=== PATIENT | male | born 1995 | race Caucasian/White ===

== ENCOUNTER 2016-08-07 22:04 | Emergency (ER) | payer MEDICAID ==
[2016-08-07 22:12] VITALS: RESP 16
--- NOTE | 2016-08-07 22:25 | CPEKG ---
Heart Rate: 82 RR Interval: 732 P-R Interval: 156 QRSD Interval: 102 QT Interval: 356 QTC Interval: 416 P [place]: 65 QRS [place]: 67 T Wave [place]: 53 EKG Severity - NORMAL ECG - EKG Impression: SINUS RHYTHM Electronically Signed By: Saran Novoa 08-Aug-2016 06:55:03
--- NOTE | 2016-08-07 22:30 | EDPHY ---
H & P Stated Complaint: pt says at home his heart rate was approx 160, says having stress HPI/ROS: HPI CHIEF COMPLAINT: Anxiety, palpitations, numbness and tingling in hands, now resolved HISTORY OF PRESENT ILLNESS: This patient otherwise healthy 20-year-old male he does have significant past medical history for anxiety but does not take any daily medications, he tells me he has been under a great amount of stress recently just graduated from [employer] yesterday he was at his graduation [place] in [place] with his parents and became very stressed he got in argument with his parents he left his own graduation [employer] and drove back to [place]. He lives alone. He states he was on the couch felt very anxious with numbness and tingling in his hands, felt his heart racing to a heart rate of 160. Came to the emergency room as he was feeling very anxious and he lives alone. Currently upon arrival he tells me he feels much better. He denies chest pain or shortness of breath he tells me tingling is resolved. Anxiety is improving. Past Medical History: Anxiety Past Surgical History: No surgical history Social History: Smokes tobacco, marijuana, occasional alcohol use, graduated [employer] yesterday Family History: Noncontributory ROS REVIEW OF SYSTEMS: A comprehensive 10 point review of systems is otherwise negative aside from elements mentioned in the history of present illness. Exam Constitutional appears well nontoxic, triage nursing summary reviewed, vital signs reviewed, awake/alert. Eyes normal conjunctivae and sclera, EOMI, PERRLA. HENT normal inspection, atraumatic, moist mucus membranes, no epistaxis, neck supple/ no meningismus, no raccoon eyes. Respiratory clear to auscultation bilaterally, normal breath sounds, no respiratory distress, no wheezing. Cardiovascular rate normal, regular rhythm, no murmur, no edema, distal pulses normal. Gastrointestinal soft, non-tender, no rebound, no guarding, normal bowel sounds, no distension, no pulsatile mass. Genitourinary no CVA tenderness. Musculoskeletal no midline vertebral tenderness, full range of motion, no calf swelling, no tenderness of extremities, no meningismus, good pulses, neurovascularly intact. Skin pink, warm, & dry, no rash, skin atraumatic. Neurologic awake, alert and oriented x 3, AAOx3, moves all 4 extremities equally, motor intact, sensory intact, CN II-XII intact, normal cerebellar, normal vision, normal speech. Psychiatric normal mood/affect. Heme/Lymph/Immune no lymphadenopathy. 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 Patient does tell me he feels much better since being here. His heart rate is noted to be 80s on the monitor. He tells me his anxiety greatly improved. Will obtain EKG. Monitor p.o. challenge. Re-evaluation: EKG interpretation by me on record in [employer] system. Impression time of EKG 2223, this is sinus rhythm rate of 82 normal morphology. Normal intervals. No signs of cardiac arrhythmia, no signs of WPW or [place]. Intervals are appropriate. No signs of ischemia. EKG interpreted by myself. EKG interpretation by me on record in [employer] system. Impression time of EKG 2323, this is sinus rhythm rate of 94, no acute ischemia changes. No signs of cardiac arrhythmia. Unremarkable EKG unchanged from previous EKG. 1235AM: Is notified to me that this patient became anxious and tachycardic in the 130s while resting here. Due to him having tachycardia for brief episode I did decide to establish an IV, do a blood draw check electrolytes. Currently this time I did re-evaluate he is resting comfortably no acute distress denies chest pain shortness of breath is not anxious at this time. Currently heart rate 82, pulse ox 90% blood pressure 118/89. 1240AM: Patient does tell me he slightly feels anxious at this time. However vital signs remained stable. 2 EKGs are unremarkable. Chest x-ray reviewed is unremarkable blood work is reassuring. Patient does feel comfortable going home. Do recommend follow up with his primary care doctor about anxiety. Return emergency room if there is worsening symptoms questions concerns he understands. ED x-ray chest one view: This is negative for acute cardiopulmonary disease. Image interpreted by myself. 0103AM: Take-home pack of Ativan given. Source: Patient - Medical/Surgical History Hx Asthma: No Hx Chronic Respiratory Disease: No Hx Diabetes: No Hx Cardiac Disease: No Hx Renal Disease: No Hx Cirrhosis: No Hx Alcoholism: No Hx HIV/AIDS: No Hx Splenectomy or Spleen Trauma: No Other PMH: anxiety - Social History Smoking Status: Current every day smoker Constitutional: Initial Vital Signs Temperature (C) 36.8 C 08/07/16 22:07 Heart Rate 98 08/07/16 22:07 Respiratory Rate 16 08/07/16 22:07 Blood Pressure 157/102 H 08/07/16 22:07 O2 Sat (%) 97 08/07/16 22:07 O2 Delivery Mode Room Air Allergies/Adverse Reactions: cough medicine Allergy (Uncoded 08/07/16 22:12) Home Medications: Medication Instructions Recorded No Medications [No Meds] 01/05/13 Medical Decision Making - Diagnostics Imaging Results: Imaging Impressions Chest X-Ray 08/07/16 23:05 Impression: 1. No acute pulmonary disease. 2. No pneumothorax. - Data Points Laboratory Results: Laboratory Results 08/07/16 23:25 08/07/16 23:25 08/07/16 08/07/16 08/07/16 23:25 23:25 23:25 WBC 8.34 10^3/uL 10^3/uL (3.80-9.50) RBC 5.13 10^6/uL 10^6/uL (4.40-6.38) Hgb 15.9 g/dL g/dL (13.7-17.5) Hct 45.3 % % (40.0-51.0) MCV 88.3 fL fL (81.5-99.8) MCH 31.0 pg pg (27.9-34.1) MCHC 35.1 g/dL g/dL (32.4-36.7) RDW 11.9 % % (11.5-15.2) Plt Count 297 10^3/uL 10^3/uL (150-400) MPV 10.3 fL fL (8.7-11.7) Neut % (Auto) 45.6 % % (39.3-74.2) Lymph % (Auto) 41.6 % % (15.0-45.0) [place] % (Auto) 10.8 % % (4.5-13.0) Eos % (Auto) 1.2 % % (0.6-7.6) Baso % (Auto) 0.4 % % (0.3-1.7) Nucleat RBC Rel Count 0.0 % % (0.0-0.2) Absolute Neuts (auto) 3.81 10^3/uL 10^3/uL (1.70-6.50) Absolute Lymphs (auto) 3.47 10^3/uL H 10^3/uL (1.00-3.00) Absolute Monos (auto) 0.90 10^3/uL H 10^3/uL (0.30-0.80) Absolute Eos (auto) 0.10 10^3/uL 10^3/uL (0.03-0.40) Absolute Basos (auto) 0.03 10^3/uL 10^3/uL (0.02-0.10) Absolute Nucleated RBC 0.00 10^3/uL 10^3/uL (0-0.01) Immature Gran % 0.4 % % (0.0-1.1) Immature Gran # 0.03 10^3/uL 10^3/uL (0.00-0.10) D-Dimer < 0.27 ug/mLFEU ug/mLFEU (0.00-0.50) Sodium 143 mEq/L mEq/L (134-144) Potassium 3.9 mEq/L mEq/L (3.5-5.2) Chloride 106 mEq/L mEq/L (97-110) Carbon Dioxide 23 mEq/l mEq/l (22-31) Anion Gap 14 mEq/L mEq/L (8-16) BUN 12 mg/dL mg/dL (7-23) Creatinine 0.9 mg/dL mg/dL (0.7-1.3) Estimated GFR > 60 Glucose 92 mg/dL mg/dL (70-100) Calcium 10.0 mg/dL mg/dL (8.5-10.4) Creatine Kinase 95 IU/L IU/L (0-224) CK-MB (CK-2) Fraction 0.46 ng/mL ng/mL (0-3.19) Troponin I < 0.012 ng/mL ng/mL (0-0.034) NT-Pro-B Natriuret Pep 20 pg/mL pg/mL (0-125) Medications Given: Discontinued Medications Sodium Chloride (Ns) 1,000 mls @ 0 mls/hr IV ONCE ONE PRN Reason: Wide Open Stop: 08/07/16 23:06 Last Admin: 08/07/16 23:30 Dose: 1,000 mls Departure - Departure Disposition: Home, Routine, Self-Care Clinical Impression: Anxiety, Palpitations Condition: Good Instructions: Palpitations (ED), Anxiety (ED) Additional Instructions: 1. Please return emergency room if you have any further questions or concerns 2. Return emergency room if you feel more anxious. Or if you develop racing heart. Referrals: ,ROBERTO [Other] - As per Instructions Bossman Almazan MD [Medical Doctor] - As per Instructions
[2016-08-07] MEDS ORDERED: NS 1,000 ML IV ONE (23:05)
--- NOTE | 2016-08-07 23:24 | CPEKG ---
Heart Rate: 94 RR Interval: 638 P-R Interval: 152 QRSD Interval: 102 QT Interval: 344 QTC Interval: 431 P [place]: 55 QRS [place]: 66 T Wave [place]: 49 EKG Severity - NORMAL ECG - EKG Impression: SINUS RHYTHM Electronically Signed By: Saran Novoa 08-Aug-2016 06:55:03
[2016-08-08 00:17] LABS: ANION GAP 14 mEq/L (8-16); CARBON DIOXIDE 23 mEq/l (22-31); CHLORIDE 106 mEq/L (97-110); CREATININE 0.9 mg/dL (0.7-1.3); GLOMERULAR FILTRATION RATE > 60; GLUCOSE 92 mg/dL (70-100); POTASSIUM 3.9 mEq/L (3.5-5.2); SODIUM 143 mEq/L (134-144)
[2016-08-08 00:24] LABS: % IMMATURE GRANULYOCYTES 0.4 % (0.0-1.1); ABSOLUTE IMMATURE GRANULOCYTES 0.03 10^3/uL (0.00-0.10); ADD DIFF? NO; ADD MORPH? NO; ADD SCAN? NO; ATYPICAL LYMPHOCYTE FLAG 10 (0-99); FRAGMENT RBC FLAG 0 (0-99); HEMATOCRIT 45.3 % (40.0-51.0); HEMOGLOBIN 15.9 g/dL (13.7-17.5); LEFT SHIFT FLG 0 (0-99); LIPEMIA HEMOLYSIS FLAG 90 (0-99); MEAN CELL HEMOGLOBIN CONCENTR. 35.1 g/dL (32.4-36.7); MEAN CELL VOLUME 88.3 fL (81.5-99.8); MEAN PLATELET VOLUME 10.3 fL (8.7-11.7); PLATELET CLUMPS FLAG 30 (0-99); PLATELET COUNT 297 10^3/uL (150-400); RED BLOOD CELL COUNT 5.13 10^6/uL (4.40-6.38); RED CELL DISTRIBUTION WIDTH 11.9 % (11.5-15.2)
[2016-08-08 00:29] LABS: CREATINE KINASE-MB FRACTION 0.46 ng/mL (0-3.19); TROPONIN I < 0.012 ng/mL (0-0.034)
[2016-08-08] MEDS ORDERED: LORAZEPAM 1 MG PREPACK#4 BTL TAKEHOME ONE ×2 (01:03)
[2016-08-08 01:11] VITALS: BP 114/79; PULSE 78; TEMP 98.1; O2SAT 97
== END 2016-08-08 01:11 | disposition home or self-care (01) ==
DX: F41.9 Anxiety disorder, unspecified (principal); F17.200 Nicotine dependence, unspecified, uncomplicated